=== PATIENT | male | born 1965 | race Caucasian/White ===

== ENCOUNTER → 2017-08-19 | Outpatient (CLI) | payer OTHER ==
[2017-08-19 16:23] LABS: Basophils % (A) 0 %; CH 34.3; CHCM 34.7; Eosinophils # (A) 0.4 k/uL (0-0.7); Eosinophils % (A) 5 %; HCT 46.3 % (39.0-53.0); HDW 2.34; HGB 15.3 gm/dL (13.0-17.5); Luc # (Auto) 0.12; Luc % (Auto) 2; Lymphocytes # (A) 1.9 k/uL (1.0-4.8); Lymphocytes % (A) 27 %; MCH 32.7 pg (25.0-35.0); MCV 99.3 fL (80.0-100.0); Mean Platelet Volume 7.3; Monocytes # (A) 0.6 k/uL (0-1.0); Monocytes % (A) 9 %; Neutrophils # (A) 4.1 k/uL (1.3-7.7); Neutrophils % (A) 57 %; RBC 4.66 m/uL (4.30-5.90); RDW 13.7 % (11.5-15.5); WBC 7.1 k/uL (3.8-10.6); WBC (Perox) 6.77
[2017-08-19 16:32] LABS: ALT 47 U/L (21-72); AST 30 U/L (17-59); Alkaline Phosphatase 85 U/L (38-126); Bilirubin, Delta 0.1 mg/dL (0.0-0.2); Non-African American GFR(MDRD) >60 (>60 ml/min/1.73 sqM); Total Bilirubin 0.5 mg/dL (0.2-1.3); Total Protein 7.1 g/dL (6.3-8.2)
== END | disposition home or self-care (01) ==
LOC: LABWHC1 15:23
PROVIDERS: ATTEND Dermatology MOHS-Micrographic Surgery
DX: L40.0 Psoriasis vulgaris (principal)
CPT/HCPCS: 36415; 80076; 82565; 85025; 86480

== ENCOUNTER → 2018-04-14 | Outpatient (CLI) | payer OTHER ==
[2018-04-14 17:19] LABS: Blood Urea Nitrogen 16 mg/dL (9-20)
== END | disposition home or self-care (01) ==
LOC: LABWHC1 16:32
PROVIDERS: ATTEND Podiatrist Foot & Ankle Surgery
DX: N18.9 Chronic kidney disease, unspecified (principal)
CPT/HCPCS: 36415; 82565; 84520

== ENCOUNTER → 2018-04-24 | Outpatient (CLI) | payer OTHER ==
--- NOTE | 2018-04-25 00:45 | MR ---
EXAMINATION TYPE: MR foot LT wo/w con DATE OF EXAM: 04/24/2018 COMPARISON: NONE HISTORY: 4th IMS lump/mass, redness/infection CONTRAST: Standard multiplanar, multisequence MRI departmental protocol utilizing 8.5 mL intravenous Gadavist g adolinium contrast. FINDINGS: The metatarsals of the left foot appear intact. I see no bony destructive process. The toes appear intact. There is edema around the fourth MP joint. I see no discrete fluid collection. There is no pathologic enhancement. IMPRESSION: There is subcutaneous edema mainly on the dorsum of the proximal phalanx of the fourth toe. No discre te mass seen. No evidence of osteomyelitis.
== END | disposition home or self-care (01) ==
LOC: RADMRIMAIN 06:00
PROVIDERS: ATTEND Podiatrist Foot & Ankle Surgery
DX: R60.0 Localized edema (principal); N18.9 Chronic kidney disease, unspecified
CPT/HCPCS: 73720; A9581

== ENCOUNTER 2018-07-17 14:41 | Emergency (ER) | payer OTHER ==
--- NOTE | 2018-07-17 16:11 | ED ---
General Adult HPI - General Chief complaint: Extremity Injury, Lower Stated complaint: foot injury Time Seen by Provider: 07/17/18 16:02 Source: patient, RN notes reviewed, old records reviewed Mode of arrival: wheelchair Limitations: no limitations - History of Present Illness Initial comments: 52-year-old male presents with left foot pain and swelling. Patient believes he may have twisted his foot in the past one week. Patient had some bruising initially, this has resolved. He presents today with swelling and tenderness in the mid foot. Patient has psoriatic arthritis, he is on Humira. Denies fever but states he's had some chills over the past several days. Only other medical history is hypertension. States that he is fairly certain he injured this foot. He also reports some swelling in the ankle which she believes is secondary to his protecting the pain in his foot. - Related Data Home Medications Medication Instructions Recorded Confirmed Adalimumab [Humira] 40 mg INJ Q14D 01/05/15 07/17/18 Atenolol [Tenormin] 50 mg PO DAILY 06/20/16 07/17/18 Hydrochlorothiazide [Hydrodiuril] 25 mg PO DAILY 06/20/16 07/17/18 Vit C/E/Zn/Coppr/Lutein/Zeaxan 1 cap PO DAILY 06/29/16 07/17/18 [Preservision Areds 2 Softgel] Allopurinol [Zyloprim] 100 mg PO DAILY 07/17/18 07/17/18 Ibuprofen [Motrin Ib] 200 mg PO Q6H PRN 07/17/18 07/17/18 Previous Rx's Medication Instructions Recorded Ibuprofen [Motrin] 600 mg PO Q8HR PRN #24 tab 07/17/18 Allergies Allergy/AdvReac Type Severity Reaction Status Date / Time No Known Allergies Allergy Verified 07/17/18 16:13 Review of Systems ROS Statement: Those systems with pertinent positive or pertinent negative responses have been documented in the HPI. ROS Other: All systems not noted in ROS Statement are negative. Past Medical History Past Medical History: Hypertension, Skin Disorder Additional Past Medical History / Comment(s): PSORIASIS/GOUT, psoriatic arthritis History of Any Multi-Drug Resistant Organisms: None Reported Past Surgical History: No Surgical Hx Reported Additional Past Surgical History / Comment(s): colonoscopy Past Anesthesia/Blood Transfusion Reactions: No Reported Reaction Past Psychological History: No Psychological Hx Reported Smoking Status: Former smoker Past Alcohol Use History: Occasional Past Drug Use History: None Reported - Past Family History Father Family Medical History: Cancer Additional Family Medical History / Comment(s): COLON/CARDIAC ARRHYTHMIA Mother Additional Family Medical History / Comment(s): TIA General Exam Limitations: no limitations General appearance: alert, in no apparent distress Head exam: Present: atraumatic, normocephalic Eye exam: Present: normal appearance, PERRL, EOMI Neck exam: Present: normal inspection. Absent: tenderness, meningismus Respiratory exam: Present: normal lung sounds bilaterally. Absent: respiratory distress, wheezes Cardiovascular Exam: Present: regular rate, normal rhythm GI/Abdominal exam: Present: soft. Absent: distended, tenderness Extremities exam: Present: tenderness, joint swelling (Left foot tenderness to palpation in the mid foot over the middle 3 digits. There is some mild erythema and swelling. No significant warmth. Distal pulses intact.), other ( No induration or fluctuance.) Neurological exam: Present: alert, oriented X3, CN II-XII intact. Absent: motor sensory deficit Psychiatric exam: Present: normal affect, normal mood Skin exam: Present: warm, dry, intact, erythema (mild). Absent: cyanosis, diaphoretic Course Vital Signs 07/17/18 07/17/18 15:06 16:40 Temperature 98.2 F Pulse Rate 69 70 Respiratory 16 18 Rate Blood Pressure 130/89 150/85 O2 Sat by Pulse 97 98 Oximetry Medical Decision Making - Medical Decision Making 52-year-old male presenting with pain and swelling in the left mid foot over the second third and fourth phalanx. X-rays obtained, does show acute nondisplaced fracture of the third proximal phalanx. Patient did have outpatient laboratory studies done today which show normal white blood cell count and are unremarkable. Patient will be put in a postoperative shoe and given orthopedic follow-up. Patient has crutches at home. Disposition Clinical Impression: Foot fracture, left Disposition: HOME SELF-CARE Condition: Good Instructions: Toe Fracture (ED) Prescriptions: Ibuprofen [Motrin] 600 mg PO Q8HR PRN #24 tab PRN Reason: Pain Is patient prescribed a controlled substance at d/c from ED?: No Referrals: Augie Leon MD [Primary Care Provider] - 1-2 days Ever Zamora MD [Medical Doctor] - 1-2 days Time of Disposition: 17:59
[2018-07-17 16:42] VITALS: RESP 18
--- NOTE | 2018-07-17 17:32 | XR ---
PROCEDURE: XR ankle complete LT 3V DATE AND TIME: 07/17/2018 4:21 PM CLINICAL INDICATION: [facility] Pain TECHNIQUE: Department protocol. 3V COMPARISON: None FINDINGS: There is no fracture or malalignment. The soft tissues are unremarkable. IMPRESSION: NO ACUTE PROCESS.
--- NOTE | 2018-07-17 17:32 | XR ---
PROCEDURE: XR foot complete LT 3 views DATE AND TIME: 07/17/2018 4:21 PM CLINICAL INDICATION: [facility] Pain TECHNIQUE: Department protocol. 3V COMPARISON: None FINDINGS: There is an oblique linear lucency involving the proximal phalanx of the third toe, seen on at least 2 of the 3 images. The findings are consistent with nondisplaced fracture which appears to involve the third MTP. There are no other fractures. Soft tissues are unremarkable. IMPRESSION: Nondisplaced third toe fracture.
[2018-07-17 18:06] VITALS: BP 150/62; PULSE 65; TEMP 98
== END 2018-07-17 18:09 | disposition home or self-care (01) ==
LOC: EC 14:41
DX: S92.515A Nondisplaced fracture of proximal phalanx of left lesser toe(s), initial encounter for closed fracture (principal); I10 Essential (primary) hypertension; M10.9 Gout, unspecified; L40.50 Arthropathic psoriasis, unspecified; Z87.891 Personal history of nicotine dependence; X58.XXXA Exposure to other specified factors, initial encounter
CPT/HCPCS: 99284

== ENCOUNTER → 2018-07-17 | Outpatient (CLI) | payer OTHER ==
[2018-07-17 17:10] LABS: Basophils % (A) 0 %; Eosinophils # (A) 0.3 k/uL (0-0.7); Eosinophils % (A) 3 %; HCT 44.8 % (39.0-53.0); HGB 14.7 gm/dL (13.0-17.5); Lymphocytes % (A) 20 %; MCH 31.7 pg (25.0-35.0); MCHC 32.8 g/dL (31.0-37.0); MCV 96.8 fL (80.0-100.0); Mean Platelet Volume 6.2; Monocytes # (A) 0.6 k/uL (0-1.0); Monocytes % (A) 6 %; Neutrophils # (A) 6.9 k/uL (1.3-7.7); Neutrophils % (A) 69 %; Platelet Count 320 k/uL (150-450); RBC 4.63 m/uL (4.30-5.90); RDW 12.5 % (11.5-15.5); WBC 9.9 k/uL (3.8-10.6)
[2018-07-17 17:19] LABS: ALT 40 U/L (21-72); AST 27 U/L (17-59); Albumin 4.2 g/dL (3.5-5.0); Alkaline Phosphatase 85 U/L (38-126); Bilirubin, Delta 0.3 mg/dL (0.0-0.2); Bilirubin,Unconjugated 0.4 mg/dL (0.0-1.1); Total Bilirubin 0.7 mg/dL (0.2-1.3); Total Protein 7.2 g/dL (6.3-8.2)
== END | disposition home or self-care (01) ==
LOC: LABMAIN 12:00
PROVIDERS: ATTEND Dermatology MOHS-Micrographic Surgery
DX: L40.0 Psoriasis vulgaris (principal)
CPT/HCPCS: 36415; 80076; 82565; 85025; 86480

== ENCOUNTER → 2019-06-22 | Outpatient (CLI) | payer OTHER ==
[2019-06-22 16:41] LABS: Basophils % (A) 0 %; Eosinophils # (A) 0.3 k/uL (0-0.7); Eosinophils % (A) 4 %; HCT 45.2 % (39.0-53.0); HGB 14.9 gm/dL (13.0-17.5); Lymphocytes # (A) 2.3 k/uL (1.0-4.8); Lymphocytes % (A) 27 %; MCH 32.7 pg (25.0-35.0); MCHC 33.1 g/dL (31.0-37.0); Mean Platelet Volume 6.7; Monocytes # (A) 0.6 k/uL (0-1.0); Monocytes % (A) 7 %; Neutrophils # (A) 5.2 k/uL (1.3-7.7); Neutrophils % (A) 60 %; Platelet Count 315 k/uL (150-450); RBC 4.56 m/uL (4.30-5.90); RDW 13.6 % (11.5-15.5); WBC 8.6 k/uL (3.8-10.6)
[2019-06-23 01:45] LABS: ALT 30 U/L (10-49); AST 22 U/L (14-35); African American GFR (CKD) 78.4 (60.0-200.0); Alkaline Phosphatase 92 U/L (41-126); Bilirubin, Conjugated <0.20 mg/dL (0.20-0.40); Globulin 2.1 g/dL (1.6-3.3); Total Bilirubin 0.4 mg/dL (0.3-1.2); Total Protein 6.3 g/dL (6.2-8.2)
== END | disposition home or self-care (01) ==
LOC: LABWHC1 16:13
PROVIDERS: ATTEND Dermatology MOHS-Micrographic Surgery
DX: L40.0 Psoriasis vulgaris (principal)
CPT/HCPCS: 36415; 80076; 82565; 85025

== ENCOUNTER → 2020-09-12 | Outpatient (CLI) | payer OTHER ==
[2020-09-12 10:45] LABS: Basophils % (A) 0 %; Eosinophils # (A) 0.5 k/uL (0-0.7); Eosinophils % (A) 6 %; HCT 50.1 % (39.0-53.0); HGB 16.3 gm/dL (13.0-17.5); Lymphocytes # (A) 2.6 k/uL (1.0-4.8); Lymphocytes % (A) 36 %; MCH 32.9 pg (25.0-35.0); MCHC 32.5 g/dL (31.0-37.0); Mean Platelet Volume 6.6; Monocytes # (A) 0.6 k/uL (0-1.0); Monocytes % (A) 9 %; Neutrophils # (A) 3.4 k/uL (1.3-7.7); Neutrophils % (A) 47 %; Platelet Count 300 k/uL (150-450); RBC 4.96 m/uL (4.30-5.90); RDW 12.3 % (11.5-15.5); WBC 7.3 k/uL (3.8-10.6)
[2020-09-12 14:49] LABS: African American GFR (CKD) 96.4 (60.0-200.0); Non-African American GFR(CKD) 83.2 (60.0-200.0)
[2020-09-13 21:51] LABS: Hepatitis A Antibody IgM Non-Reactive (Non-Reactive); Hepatitis B Core IgM Non-Reactive (Non-Reactive); Hepatitis B Surface Antigen Non-Reactive (Non-Reactive); Hepatitis C IgG Antibody Non-Reactive (Non-Reactive)
== END | disposition home or self-care (01) ==
LOC: LABWHC1 09:34
PROVIDERS: ATTEND Dermatology MOHS-Micrographic Surgery
DX: L40.0 Psoriasis vulgaris (principal)
CPT/HCPCS: 36415; 80074; 82565; 82746; 84450; 84460; 85025; 86480

== ENCOUNTER 2021-05-26 | Day surgery (SDC) | payer OTHER | END 2021-05-26 15:45 | disposition home or self-care (01) | CPT/HCPCS: 88304; 26160; J2250; J1100; J2405; J2001; J3010; J2704 ==

== ENCOUNTER → 2021-07-12 | Outpatient (CLI) | payer OTHER ==
[2021-07-12 15:44] LABS: Basophils # (A) 0.02 X 10*3/uL (0.00-0.10); Basophils % (A) 0.3 %; Eosinophils # (A) 0.52 X 10*3/uL (0.04-0.35); HCT 46.9 % (39.6-50.0); HGB 15.9 g/dL (13.0-17.0); Lymphocytes # (A) 2.49 X 10*3/uL (0.90-5.00); Lymphocytes % (A) 38.1 %; MCHC 33.9 g/dL (32.0-37.0); MCV 97.3 fL (80.0-97.0); Mean Platelet Volume 9.6 fL (9.5-12.2); Monocytes # (A) 0.85 X 10*3/uL (0.20-1.00); Neutrophils # (A) 2.64 X 10*3/uL (1.80-7.70); Neutrophils % (A) 40.3 %; Platelet Count 357 X 10*3/uL (140-440); RBC 4.82 X 10*6/uL (4.40-5.60); RDW 12.7 % (11.5-14.5); WBC 6.54 X 10*3/uL (4.50-10.00)
[2021-07-12 18:29] LABS: African American GFR (CKD) 85.9 (60.0-200.0); Non-African American GFR(CKD) 74.1 (60.0-200.0)
== END | disposition home or self-care (01) ==
LOC: LABWHC1 08:42
PROVIDERS: ATTEND Dermatology MOHS-Micrographic Surgery
DX: L40.0 Psoriasis vulgaris (principal)
CPT/HCPCS: 36415; 82565; 84450; 84460; 84520; 85025; 86480

== ENCOUNTER → 2022-08-10 | Outpatient (CLI) | payer OTHER ==
[2022-08-10 18:21] LABS: Basophils # (A) 0.01 X 10*3/uL (0.00-0.10); Basophils % (A) 0.1 %; Eosinophils % (A) 4.5 %; HCT 43.5 % (39.6-50.0); HGB 15.4 g/dL (13.0-17.0); Immature Grans, Automated 0.3 %; Lymphocytes % (A) 26.8 %; MCH 32.7 pg (27.0-32.0); MCHC 35.4 g/dL (32.0-37.0); MCV 92.4 fL (80.0-97.0); Mean Platelet Volume 9.8 fL (9.5-12.2); Monocytes # (A) 0.79 X 10*3/uL (0.20-1.00); Monocytes % (A) 11.8 %; NRBC Per 100 WBC 0 /100 WBCS (0.0-0.0); Neutrophils # (A) 3.79 X 10*3/uL (1.80-7.70); Neutrophils % (A) 56.5 %; Platelet Count 288 X 10*3/uL (140-440); RBC 4.71 X 10*6/uL (4.40-5.60); RDW 12.4 % (11.5-14.5); WBC 6.71 X 10*3/uL (4.50-10.00)
[2022-08-10 18:43] LABS: African American GFR (CKD) 95.1 (60.0-200.0); Blood Urea Nitrogen 13.9 mg/dL (9.0-27.0)
== END | disposition home or self-care (01) ==
LOC: LABWHC1 13:21
PROVIDERS: ATTEND Dermatology Procedural Dermatology
DX: L40.0 Psoriasis vulgaris (principal)
CPT/HCPCS: 36415; 82565; 84450; 84460; 84520; 85025; 86480

== ENCOUNTER → 2024-09-23 | Outpatient (CLI) | payer OTHER ==
[2024-09-23 14:18] LABS: Creatinine,Urine Random 244.5 mg/dL
[2024-09-23 19:07] LABS: Microalbumin Creatinine Ratio <5 mg/g Cr (0-30)
[2024-09-23 19:38] LABS: % Iron Saturation 37.72 (15.00-50.00); BUN/Creat Ratio 19.62 Ratio (12.00-20.00); Blood Urea Nitrogen 15.7 mg/dL (9.0-27.0); C Reactive Protein <0.30 mg/dL (0.00-0.80); Chloride 104 mmol/L (96-109); Chol/HDL Ratio 4.57 Ratio; Creatine Kinase 111 U/L (35-257); Glucose 104 mg/dL (70-110); Iron 152 UG/DL (65-175); LDL Cholesterol,Calculated 153.4 mg/dL (0.0-131.0); Magnesium 2.1 mg/dL (1.5-2.4); Phosphorus 3.1 mg/dL (2.4-5.1); Potassium 4.5 mmol/L (3.5-5.5); Sodium 142 mmol/L (135-145); Total Iron Binding Capacity 403 UG/DL (228-460)
[2024-09-23 19:39] LABS: ALT 31 U/L (10-49); AST 22 U/L (14-35); Albumin 4.5 g/dL (3.8-4.9); Alkaline Phosphatase 96 U/L (41-126); Calcium 9.8 mg/dL (8.7-10.3); Carbon Dioxide 25.3 mmol/L (21.6-31.8); Hepatitis A Antibody IgM Nonreactive (Nonreactive); Hepatitis B Surface Antigen Nonreactive (Nonreactive); Hepatitis C IgG Antibody Nonreactive (Nonreactive); Prostate Specific Antigen 1.92 ng/mL (0.000-4.500); Total Bilirubin 0.4 mg/dL (0.3-1.2); Total Protein 7.5 g/dL (6.2-8.2)
[2024-09-23 19:47] LABS: Basophils # (A) 0.02 X 10*3/uL (0.00-0.10); Basophils % (A) 0.3 %; Eosinophils % (A) 4.3 %; HCT 46.5 % (39.6-50.0); Lymphocytes # (A) 1.58 X 10*3/uL (0.90-5.00); Lymphocytes % (A) 22.7 %; MCH 32.1 pg (27.0-32.0); MCHC 34.4 g/dL (32.0-37.0); MCV 93.4 FL (80.0-97.0); Mean Platelet Volume 9.3 FL (9.5-12.2); NRBC Per 100 WBC 0 X 10*3/uL (0.00-0.01); Neutrophils # (A) 4.34 X 10*3/uL (1.80-7.70); Neutrophils % (A) 62.3 %; Platelet Count 358 X 10*3/uL (140-440); RBC 4.98 X 10*6/uL (4.40-5.60); RDW 12.7 % (11.5-14.5); WBC 6.97 X 10*3/uL (4.50-10.00)
[2024-09-23 20:05] LABS: Erythrocyte Sedimentation Rate 31 mm/Hr (0-20)
[2024-09-23 20:37] LABS: Appearance,Urine Clear (Clear); Bilirubin,Urine Negative (Negative); Blood,Urine Negative (Negative); Color,Urine Yellow (Yellow); Ketones,Urine Negative (Negative); Nitrite,Urine Negative (Negative); PH, Urine 5.5; Specific Gravity,Urine 1.026 (1.001-1.030); Urobilinogen,Urine 0.2 E.U./DL
[2024-09-23 20:41] LABS: Hepatitis B Core IgM Nonreactive (Nonreactive)
== END | disposition home or self-care (01) ==
LOC: LABWHC1 12:36
PROVIDERS: ATTEND Internal Medicine
CPT/HCPCS: 36415; 80053; 80061; 80074; 81003; 82043; 82306; 82550; 82570; 82728; 82785; 83540; 83550; 83735; 84100; 84153; 84156; 84443; 84550; 85025; 85652; 86140; 86480; 87086

== ENCOUNTER → 2025-03-04 | Outpatient (CLI) | payer OTHER ==
--- NOTE | 2025-03-04 08:49 | XR ---
EXAMINATION TYPE: XR chest 2V DATE OF EXAM: 03/04/2025 CLINICAL INDICATION: Male, 59 years old with history of asbestos exposure, TECHNIQUE: Frontal and lateral views of the chest are obtained. COMPARISON: CXR from 05/24/2011 FINDINGS: There is no focal air space opacity, pleural effusion, or pneumothorax seen. The cardiac silhouette size is stable and within normal limits. The osseous structures are intact. IMPRESSION: No acute cardiopulmonary process. [facility], , 03/04/2025 8:46 AM
[2025-03-04 15:30] LABS: % Iron Saturation 41.81 (15.00-50.00); Chol/HDL Ratio 3.18 Ratio; Iron 171 UG/DL (65-175); Total Iron Binding Capacity 409 UG/DL (228-460); VLDL Calculation 19.04 mg/dL (5.00-40.00)
== END | disposition home or self-care (01) ==
LOC: LABWHC1 07:03
PROVIDERS: ATTEND Internal Medicine
DX: I10 Essential (primary) hypertension (principal); E78.5 Hyperlipidemia, unspecified; R05.9 Cough, unspecified
CPT/HCPCS: 36415; 71046; 80061; 83540; 83550; 85652